=== PATIENT | male | born 1980 | race Two or more races ===

== ENCOUNTER → 2018-12-19 | Outpatient (CLI) | payer OTHER ==
--- NOTE | 2018-12-19 10:34 | REP ---
Maxillofacial CT study without contrast: History: Chronic maxillary sinusitis. No comparison imaging. Findings: There is a 1.5 cm mucous retention cyst in the anteroinferior aspect of the left maxillary sinus. There is another small mucous retention cyst posteromedially in the same left maxillary sinus. There is mucosal thickening along the left lateral wall of the sphenoid sinus. Ethmoid and frontal sinuses appear to be clear. The right maxillary sinus is clear. Mastoid aeration is normal and symmetric. Coronal images demonstrate widely patent ostiomeatal complexes although there is mucosal thickening at the posterior aspect of the ostium on the left. There are small aerated clint bullosa bilaterally left larger than right. Bony nasal septum is in the midline. No nasal polyp is appreciated. No intraorbital or intracranial abnormality is appreciated. Impression: Mild mucosal changes in the left maxillary and left sphenoid sinus. Electronically Signed by Xavier Guillermo MD 12/19/2018 07:19 P
== END ==
LOC: M RAD 07:40
PROVIDERS: ATTEND Otolaryngology
DX: J01.00 Acute maxillary sinusitis, unspecified (principal)

== ENCOUNTER → 2019-01-11 | Outpatient (CLI) | payer OTHER ==
[~2019-01-11] MED LIST: PIRO20CA2 PO; SIMB1SUS OS; [UNRECOGNIZED DRUG - OTHER] OS
--- NOTE | 2019-01-14 07:39 | REP ---
MRI OF THE LUMBAR SPINE WITHOUT CONTRAST: REASON FOR EXAM: Lumbago, chronic back pain without improvement. COMPARISON: None. TECHNIQUE: MRI of the lumbar spine was performed without contrast utilizing axial T1 and T2 and sagittal STIR, T1 and T2 weighted imaging. FINDINGS: There is normal alignment and curvature of the lumbar spine. Vertebral body and intervertebral disc heights are maintained. There is diffuse hypointense signal throughout the bone marrow, which is nonspecific. There is no bone marrow edema. Visualized cord is unremarkable. The conus medullaris terminates at the L1-L2 level. The paraspinal soft tissues are within normal limits. There is no significant spinal canal stenosis or neural foraminal compromise. IMPRESSION: Diffuse hypointensity throughout the bone marrow, which is a nonspecific finding but can be seen with anemia, bone marrow reconversion and/or an infiltrative marrow process. Electronically Signed by Mago Madrigal MD 01/15/2019 08:54 A
== END ==
LOC: M RAD 14:08
PROVIDERS: ATTEND Anesthesiology
DX: M54.5 Low back pain (principal)

== ENCOUNTER → 2019-02-06 | Outpatient (CLI) | payer OTHER ==
--- NOTE | 2019-02-19 00:57 | ECWPNPC ---
PATIENT NAME: BRIANA MILLS : 1980 GENDER: MALE VISIT DATE: 02/06/2019 DISCHARGE DATE: 02/06/19 1643 VISIT LOCKED DATE TIME: PHYSICIAN: BROOK WALDRON MD RESOURCE: BROOK WALDRON MD REASON FOR APPOINTMENT 1. REVIEW MRI HISTORY OF PRESENT ILLNESS HISTORY OF PRESENT ILLNESS: PAIN THE PATIENT DESCRIBES THE PAIN... 38 YEAR OLD MALE PATIENT WITH A HISTORY OF CHRONIC LOW BACK PAIN. THE PATIENT DESCRIBES THE PAIN ACHING, SHARP, SHOOTING, AND CONTINUOUS WITH A PAIN SCORE OF 8-10/10 DEPENDING ON PHYSICAL ACTIVITY. THE PATIENT SAYS HE HAS BEEN SUFFERING FROM THIS PAIN FOR AROUND 2 YEARS THAT BEGAN AFTER PERFORMING VARIOUS EXERCISES AND DUTIES. PATIENT DENIES UNEXPLAINABLE WEIGHT LOSS, FEVER, CHILLS, NEW CHANGES ON HIS URINARY OR BOWEL CONTROL. FALL RISK SCREENING: SCREENING :NO FALLS REPORTED IN THE LAST YEAR CURRENT MEDICATIONS TAKING CETIRIZINE HCL 10 MG TABLET 1 TABLET ORALLY ONCE A DAY TAKING FLUTICASONE PROPIONATE 50 MCG/ACT SUSPENSION 1 SPRAY IN EACH NOSTRIL NASALLY ONCE A DAY TAKING SIMBRINZA 1-0.2 % SUSPENSION 1 DROP INTO AFFECTED EYE OPHTHALMIC THREE TIMES A DAY TAKING DUREZOL 0.05 % EMULSION 1 DROP INTO AFFECTED EYE OPHTHALMIC TWICE A DAY NOT-TAKING NAPROXEN 500 MG TABLET 1 TABLET WITH FOOD OR MILK NEEDED ORALLY EVERY 12 HRS UNKNOWN PREDNISOLONE ACETATE 1 % SUSPENSION 1 DROP INTO AFFECTED EYE OPHTHALMIC TWICE A DAY UNKNOWN MELOXICAM 15 MG TABLET 1 TABLET ORALLY ONCE A DAY UNKNOWN HYDROCODONE-ACETAMINOPHEN 5-325 MG TABLET DIRECTED ORALLY MEDICATION LIST REVIEWED AND RECONCILED WITH THE PATIENT PAST MEDICAL HISTORY LOW BACK PAIN 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 SOCIAL HISTORY GENERAL: TOBACCO USE ARE YOU A:FORMER SMOKER HOW LONG HAS IT BEEN SINCE YOU LAST SMOKED?> 10 YEARS PAIN CLINIC PFS, CLERGY, PUBLIC HEALTH REFERRALS HAS THE PATIENT BEEN EDUCATED REGARDING HIS/HER PLAN OF CARE?YES HAS THE PATIENT BEEN EDUCATED REGARDING PAIN, THE RISK FOR PAIN, THE IMPORTANCE OF EFFECTIVE PAIN MANAGEMENT, AND THE PAIN ASSESSMENT PROCESS?YES LATEX QUESTIONNAIRE LATEX ALLERGY : HAVE YOU EVER DEVELOPED ANY TYPE OF REACTION AFTER HANDLING LATEX PRODUCTS SUCH RUBBER GLOVES, CONDOMS, DIAPHRAGMS, BALLOONS, SOCKS, OR UNDERWEAR?NO LATEX ALLERGY : HAVE YOU EVER DEVELOPED ANY TYPE OF REACTION DURING OR AFTER DENTAL APPOINTMENT, VAGINAL/RECTAL EXAMINATION, SURGICAL PROCEDURE, OR ANY OTHER EXPOSURE?NO DATE ASKED : 12/16/2018 LATEX RISK : HAVE YOU EVER HAD ANY DIFFICULTY BREATHING OR HIVES AFTER EATING OR HANDLING ANY FRUITS, OR VEGETABLES; SUCH KIWI, BANANAS, STONE FRUITS, OR CHESTNUTSNO LATEX RISK : DO YOU HAVE A PREVIOUS PERSONAL HISTORY OF MORE THAN NINE SURGERIES, SPINA BIFIDA, OR REPEATED CATHERIZATIONS? NO LATEX RISK : ARE YOU FREQUENTLY EXPOSED TO LATEX PRODUCTS IN YOUR OCCUPATION?NO CAFFEINE CAFFEINE USE?YES 1 CUP COFFEE / DAY ADVANCE DIRECTIVE ADVANCE DIRECTIVE DISCUSSED WITH PATIENT:YES PT HAS HCP YUMIKO MILLS [phone] YARSANI [id number] [employer] LANGUAGE LANGUAGES SPOKEN:TAJIK MARITAL STATUS: . RECREATIONAL DRUG USE DRUG USE?NO OCCUPATION: [employer]. EXERCISE: DAILY. LEARNING BARRIERS / SPECIAL NEEDS BARRIERS TO LEARNING?NO HEARING IMPAIRED?NO VISION IMPAIRED?NO COGNITIVELY IMPAIRED?NO READINESS TO LEARN?YES LEARNING PREFERENCES?NO LEARNING CAPABILITIES PRESENT?YES EMOTIONAL BARRIERS?NO SPECIAL DEVICES?NO STUDENT AMBASSADOR NEEDED?NO HOSPITALIZATION/MAJOR DIAGNOSTIC PROCEDURE SURGICAL REVIEW OF SYSTEMS REVIEWED BY: PROVIDER: BROOK WALDRON MD . CONSTITUTIONAL: ANY CHANGE IN YOUR MEDICAL CONDITION? NO . CHILLS NO . FEVER NO . INFECTION: DO YOU HAVE NEW INFECTIONS? NO . DO YOU HAVE HISTORY OF MRSA? NO . MUSCULOSKELETAL: ANY NEW PATTERNS OF PAIN OR NUMBNESS? NO . GASTROENTEROLOGY: ANY NEW CHANGE IN BOWEL CONTROL? NO . GENITOURINARY: ANY NEW CHANGE IN BLADDER CONTROL? NO . IS THERE A CHANCE YOU COULD BE ? NO . HEMATOLOGY/LYMPH: DO YOU TAKE ANY BLOOD THINNERS? (FOR EXAMPLE- COUMADIN, PLAVIX, AGGRENOX, PLATEL, PRADAXA, OR XARELTO) NO . WHEN WAS YOUR LAST DOSE? DATE: TIME: . NEUROLOGY: HAVE YOU FALLEN IN THE PAST 12 MONTHS? NO . ANY NEW EXTREMITY NUMBNESS OR WEAKNESS? NO . CARDIOLOGY: DO YOU HAVE A PACEMAKER OR DEFIBRILLATOR? NO . RESPIRATORY: HAVE YOU BEEN SICK IN THE PAST WEEK? NO . FEVER NO . FLU LIKE SYMPTOMS? NO . COUGH NO . INTEGUMENTARY: DO YOU HAVE ANY RASHES OR OPEN SORES? NO . ALLERGIC/IMMUNO: ARE YOU ALLERGIC TO IV DYE? NO . ANY NEW ALLERGIES? NO . PSYCHIATRIC: DO YOU HAVE THOUGHTS OF HURTING YOURSELF OR SOMEONE ELSE? NO . ARE YOU ABUSED, NEGLECTED, OR IN AN UNSAFE ENVIRONMENT? NO . ENDOCRINOLOGY: ARE YOU DIABETIC? NO . OTHER: DO YOU NEED ANY PRESCRIPTIONS? NO . IF YES, PLEASE LIST: ____ . ANY NEW PROBLEMS WITH YOUR MEDICATIONS? NO . WHEN DID YOU LAST EAT? ____ . WHEN DID YOU LAST DRINK? ____ . WHAT DID YOU LAST DRINK? ____ . NAME OF PERSON DRIVING YOU HOME? ____ . DO YOU HAVE ANY OTHER QUESTIONS OR CONCERNS NO . VITAL SIGNS WT 220.2 LBS, HT 70 IN, BMI 31.59 INDEX, BP 132/87 MM HG, HR 68 /MIN, RR 18 /MIN, TEMP 97.7 F, OXYGEN SAT % 96%, SAFE IN ENV? (Y/N) YES, NA INITIALS SC 14:57, REVIEWED BY: KG. EXAMINATION GENERAL EXAMINATION: PATIENT IS ALERT O X 3 AND COOPERATIVE. TENDERNESS IN THE LOW BACK. PRESENCE OF BANDS OF TISSUE AND TRIGGER POINTS WITH RESTRICTION OF MOVEMENT OF THE LOW BACK. MRI OF THE LUMBAR SPINE DONE ON 01/11/2019 SHOWS DIFFUSE HYPOINTENSITY THROUGHOUT THE BONE MARROW, WHICH IS A NONSPECIFIC FINDING BUT CAN BE SEEN WITH ANEMIA, BONE MARROW RECONVERSION AND/OR AN INFILTRATIVE MARROW PROCESS. ASSESSMENTS LOW BACK PAIN - M54.5 (PRIMARY) OTHER CHRONIC PAIN - G89.29 MYALGIA, OTHER SITE - M79.18 BONE MARROW CHANGES. TREATMENT LOW BACK PAIN CLINICAL NOTES: WE DISCUSSED SEVERAL ISSUES WITH MR. MILLS'S PAIN MANAGEMENT CASE. DUE TO THE TRIGGER POINTS, BANDS OF TISSUE, AND RESTRICTION OF MOVEMENT, I WOULD LIKE TO MOVE FORWARD WITH A TRIGGER POINT INJECTION AT THIS TIME. WE DISCUSSED THE BENEFITS, RISKS, AND ALTERNATIVES OF THE INJECTION AND THE PATIENT WOULD LIKE TO PROCEED. I DISCUSSED WITH THE PATIENT ABOUT THE FINDINGS ON HIS RECENT MRI SCAN AND ADVISED THE PATIENT TO FOLLOW UP WITH HIS PRIMARY CARE REGARDING THE MRI RESULTS THAT STATES "DIFFUSE HYPOINTENSITY THROUGHOUT THE BONE MARROW, WHICH IS A NONSPECIFIC FINDING BUT CAN BE SEEN WITH ANEMIA, BONE MARROW RECONVERSION, AND/OR AN INFILTRATIVE MARROW PROCESS." THE PATIENT IS AWARE AND AGREES TO FOLLOW UP WITH HIS PRIMARY CARE PHYSICIAN. THE PATIENT WILL FOLLOW UP IN SEVERAL WEEKS AFTER HIS INJECTION. INSTRUCTIONS WERE GIVEN, QUESTIONS WERE ANSWERED, PATIENT REPORTS UNDERSTANDING AND AGREES WITH THE PLAN. I, ALIYA ADAMS, DOCUMENTED THE ABOVE INFORMATION ACTING A SCRIBE FOR DR. WALDRON. I HAVE REVIEWED THE ABOVE DOCUMENT, WRITTEN BY ALIYA NAIR AND I VERIFY THAT IT IS ACCURATE. . OTHERS NOTES: TRIGGER POINT INJECTION HOME CARE MATERIAL WAS PRINTED,OPTIONS: TRIGGER POINT INJECTION MATERIAL WAS PRINTED. PREVENTIVE MEDICINE PAIN CLINIC TEACHING: PROCEDURE TEACHING PRINTED INFORMATION ON TRIGGER POINT INJECTIONS GIVEN TO AND REVIEWED WITH PT. ALONG WITH PRINTED PRE-PROCEDURE INSTRUCTIONS AND PT. VERBALIZED UNDERSTANDING ON ALL. AD. PROCEDURE CODES FA211 ESTABILISHED PATIENT [facility] CHARGE [id number] CURRENT MEDS W/DOSAGES DOCUMENTED G8730 PAIN ASSESS POS TOOL F/U PLAN DOC DISPOSITION & COMMUNICATION FOLLOW UP 4 WEEKS (REASON: TPI) ELECTRONICALLY SIGNED BY BROOK WALDRON MD, MD ON 02/18/2019 AT 12:09 PM EDT DISCLAIMER : THIS IS A VISIT SUMMARY EXTRACTED FROM THE [employer] CHART. IT IS NOT A COPY OF THE [employer] PROGRESS NOTE. YAMILETH
== END ==
LOC: M PAIN 15:00
PROVIDERS: ATTEND Anesthesiology
DX: G89.29 Other chronic pain (principal); M54.5 Low back pain; M79.18 Myalgia, other site; M10.9 Gout, unspecified; Z87.891 Personal history of nicotine dependence; Z79.899 Other long term (current) drug therapy; Z91.013 Allergy to seafood

== ENCOUNTER 2019-02-11 07:23 | Day surgery (SDC) | payer OTHER ==
[~2019-02-11] VITALS: Ht 177.8 cm; Wt 95.3 kg
[~2019-02-11 07:23] MED LIST changes: +LIDOCAINE 1% MDV 20ML VIAL SQ PRN; +LR 1,000 ML IV ONE; +dexameTHASONE 4 MG/ML 1ML VIAL (J1100) IV ONE
[2019-02-11] MEDS ORDERED: METHYLENE BLUE 0.5% (5MG/ML) 10 ML AMP (PROVAYBLUE)(Q9968 PER 1MG) As Ordered ONE (09:47)
[2019-02-11] MEDS ORDERED: EPINEPHrine 1MG/ML INJ 30ML MD-VIAL As Ordered ONE ×2 (09:47→11:35)
[2019-02-11] MEDS ORDERED: LIDOCAINE W/EPINEPHRINE 1% 20ML VIAL As Ordered ONE (09:47)
[2019-02-11] MEDS ORDERED: SODIUM CHLORIDE 0.9% NASAL GEL 15GM (AYR) As Ordered ONE (09:47)
[2019-02-11] MEDS ORDERED: ePHEDrine SULFATE 25 MG/5 ML(5MG/ML) SYRINGE As Ordered ONE (12:10)
[2019-02-11] MEDS ORDERED: ROCURONIUM BROMIDE 50 MG/5 ML VIAL As Ordered ONE (12:10)
[2019-02-11] MEDS ORDERED: dexameTHASONE 4 MG/ML 1ML VIAL (J1100) As Ordered ONE (12:10)
[2019-02-11] MEDS ORDERED: ONDANSETRON 4MG/2ML VIAL (J2405) As Ordered ONE (12:10)
[2019-02-11] MEDS ORDERED: PROPOFOL 200 MG/20 ML VIAL As Ordered ONE ×2 (12:10→13:13)
[2019-02-11] MEDS ORDERED: LIDOCAINE 2% INJ 100 MG/5 ML SDV (FOR ANES.) As Ordered ONE (12:10)
[2019-02-11] MEDS ORDERED: fentaNYL 250 MCG/5 ML INJECTION (J3010) As Ordered ONE (12:10)
[2019-02-11] MEDS ORDERED: MIDAZOLAM INJ 2 MG/2 ML VIAL (J2250) As Ordered ONE (12:10)
[2019-02-11] MEDS ORDERED: SUGAMMADEX SODIUM 500 MG/5 ML VIAL (BRIDION) As Ordered ONE (12:40)
[2019-02-11] MEDS ORDERED: NALOXONE INJ 0.4 MG/1 ML VIAL (J2310) As Ordered ONE (13:52)
[2019-02-11] MEDS ORDERED: fentaNYL 100 MCG/2 ML INJECTION (J3010) IV PRN (14:15)
[2019-02-11] MEDS ORDERED: PERCOCET 5MG/325MG TAB PO PRN (14:15)
[2019-02-11] MEDS ORDERED: ONDANSETRON 4MG/2ML VIAL (J2405) IV PRN (14:15)
[2019-02-11] MEDS ORDERED: LR 1,000 ML IV SCH ×2 (14:15→15:16)
[2019-02-11 16:30] VITALS: BP 135/75
--- NOTE | 2019-02-18 13:45 | RO ---
DATE OF PROCEDURE: 02/11/2019 PREOPERATIVE DIAGNOSES: Chronic left maxillary sinusitis. Chronic left ethmoid sinusitis. Left clint bullosa. Hypertrophy of inferior nasal turbinates. POSTOPERATIVE DIAGNOSES: Chronic left maxillary sinusitis. Chronic left ethmoid sinusitis. Left clint bullosa. Hypertrophy of inferior nasal turbinates. PROCEDURE PERFORMED: 1. Endoscopic left maxillary antrostomy with tissue removal. 2. Endoscopic left anterior ethmoidectomy. 3. Resection of left clint bullosa. 4. Coblation of the inferior left and right nasal turbinates. 5. Stereotactic surgery using BrainLAB. 6. Implantation of PROPEL stents. SURGEON: Zeus Zambrano MD CEMETERY VAULT INSTALLER: ANESTHESIA: General. CLINICAL PREAMBLE: This 38-year-old man presented to the office complaining of chronic nasal congestion with symptoms mostly from the left side of his cheek. Physical examination confirmed presence of enlarged nasal turbinates. CT scan confirmed presence of clint bullosa and left sided chronic sinusitis. Management options including the surgery listed above have been discussed. The patient understood and consented to the procedure. DESCRIPTION OF PROCEDURE/OR NARRATION: The patient was identified in preoperative holding and brought to the operating room in stable condition. In supine position on the operating room table, the patient received general anesthesia followed by orotracheal intubation without incident. The patient was prepped and draped in the usual fashion for the procedure. The headband for the BrainLAB was successfully attached. Good surface matching was obtained between the patient's facial anatomy and the BrainLAB system. Both sides of the nasal cavity were packed using pledgets soaked in 1:1,000 epinephrine. The pledgets were then removed. Both sides of the nasal cavity were reinspected using 0 degree rigid nasal endoscope. Hypertrophic inferior nasal turbinates were noted. A left was noted as well. At this time, the left uncinate process was infiltrated with 1% lidocaine with 1:100,000 epinephrine. Uncinectomy was performed. The illuminated Guidewire from the ACCLARENT balloon sinuplasty system was successfully introduced into the left maxillary sinus. Balloon was inflated to 12 atmospheric pressure for 5 seconds the left maxillary antrostomy using the balloon. At this time, the tissue bridging between the left accessory osteum and the left maxillary antrum was then successfully taken down using side-biting forceps. The left maxillary sinus cavity was visualized and then irrigated using warm saline solution. At this time, the left ethmoidalis bulla was identified and taken down using the Blakesley forceps. Diseased anterior ethmoid air cells were identified and taken down as well. The left middle nasal turbinate was infiltrated with 1% lidocaine with 1:100,000 epinephrine. Mucosal incision was made along the inferior aspect of the left middle nasal turbinate to expose the clint bullosa. The clint bullosa was successfully decompressed along with removal of the bone along the inferior aspect of the nasal turbinate. At this time, the PROPEL was successfully implanted into the left osteomeatal complex area. Attention was turned to performing Coblation of the inferior nasal turbinates, anterior surfaces of the left and the right inferior nasal turbinates were infiltrated with 1% lidocaine with 1:100,000 epinephrine. A stab incision was made over the anterior surface of the right inferior nasal turbinate. Using the Coblator wand set at 4 for Coblation the submucosal plane of the right inferior nasal turbinate was successfully coblated. Three submucosal passes were made to the right inferior nasal turbinate. The procedure was then carried out to coblate the left inferior nasal turbinate in the submucosal plane as well. Complete hemostasis was observed at the end of he case. Estimated blood loss was approximately 50 mL. No complications were encountered. General anesthesia was reversed and the patient was extubated and brought to the recovery room in stable condition. In the recovery area, the patient was exhibited no evidence of periorbital ecchymosis. He demonstrated full and symmetrical extraocular motion.
== END 2019-02-11 16:34 | disposition home or self-care (01) ==
LOC: M SDC 07:23
PROVIDERS: ATTEND Otolaryngology
DX: J32.0 Chronic maxillary sinusitis (principal); J32.2 Chronic ethmoidal sinusitis; J34.3 Hypertrophy of nasal turbinates; Z79.899 Other long term (current) drug therapy; Z91.013 Allergy to seafood; F17.220 Nicotine dependence, chewing tobacco, uncomplicated
CPT/HCPCS: 30802; 31240; 31254; 31267; 88305; J1100; J2250; J2310; J2405; J3010; Q9968

== ENCOUNTER 2019-08-06 10:49 | Emergency (ER) | payer OTHER ==
[~2019-08-06] VITALS: Ht 177.8 cm; Wt 96.3 kg
[~2019-08-06 10:49] MED LIST changes: -LIDOCAINE 1% MDV 20ML VIAL SQ PRN; -LR 1,000 ML IV ONE; -dexameTHASONE 4 MG/ML 1ML VIAL (J1100) IV ONE
[2019-08-06] MEDS ORDERED: LATA0.0015 OS (11:06)
[2019-08-06] MEDS ORDERED: ILEV0.3D OS (11:06)
[2019-08-06] MEDS ORDERED: TIMO0.5S29 OS (11:06)
[2019-08-06] MEDS ORDERED: METH25TA3 PO (11:06)
[2019-08-06] MEDS ORDERED: VIGA0.02 OS (11:06)
[2019-08-06 11:40] LABS: APPEARANCE, URINE CLEAR (CLEAR); BACTERIA, URINE AUTO NEGATIVE (NEGATIVE); BILIRUBIN, URINE AUTO NEGATIVE (NEGATIVE); BLOOD, URINE BLOOD NEGATIVE (NEGATIVE); COLOR, URINE STRAW (YELLOW); GLUCOSE, URINE (UA) AUTO NEGATIVE (NEGATIVE); KETONE, URINE AUTO NEGATIVE (NEGATIVE); LEUKOCYTE ESTERASE, URINE AUTO NEGATIVE (NEGATIVE); NITRITE, URINE AUTO NEGATIVE (NEGATIVE); PROTEIN, URINE AUTO NEGATIVE (NEGATIVE); RBC, URINE AUTO 0 /HPF (0-3); SPECIFIC GRAVITY URINE AUTO 1.006 (1.002-1.035); SQUAMOUS EPITHELIAL CELL UR AU 0 /HPF (0-6); UROBILINOGEN, URINE AUTO 0.2 mg/dL (0.0-2.0); WBC, URINE AUTO 0 /HPF (0-3)
[2019-08-06 11:44] LABS: BASO # 0.1 10^3/uL (0.0-0.2); BASO % 1.1 % (0.0-1.0); EOS # 0.2 10^3/uL (0.0-0.5); EOS % 4.2 % (0.0-3.0); HEMATOCRIT 43.3 % (42.0-52.0); HEMOGLOBIN 15.1 g/dl (13.5-17.5); LYMPH # 2.2 10^3/uL (1.5-5.0); MEAN CORPUSCULAR HEMOGLOBIN 31.7 pg (27.0-33.0); MEAN CORPUSCULAR HGB CONC 34.9 g/dl (32.0-36.5); MEAN CORPUSCULAR VOLUME 90.8 fl (80.0-96.0); MONO # 0.4 10^3/uL (0.0-0.8); MONO % 9.3 % (0.0-5.0); NEUTROPHILS # 1.9 10^3/uL (1.5-8.5); NEUTROPHILS % 39.4 % (36.0-66.0); PLATELET COUNT, AUTOMATED 289 10^3/uL (150-450); RED BLOOD COUNT 4.77 10^6/uL (4.30-6.10); WHITE BLOOD COUNT 4.7 10^3/uL (4.0-10.0)
[2019-08-06 12:12] LABS: ALBUMIN 4.1 GM/DL (3.2-5.2); ALT/SGPT 25 U/L (12-78); BILIRUBIN,DIRECT 0.1 MG/DL (0.0-0.2); BILIRUBIN,TOTAL 0.5 MG/DL (0.2-1.0); BLOOD UREA NITROGEN 13 MG/DL (7-18); CALCIUM LEVEL 9.1 MG/DL (8.5-10.1); CARBON DIOXIDE LEVEL 30 MEQ/L (21-32); CHLORIDE LEVEL 105 MEQ/L (98-107); CREATININE FOR GFR 1.34 MG/DL (0.70-1.30); GLOMERULAR FILTRATION RATE > 60.0 (>60); GLUCOSE, FASTING 85 MG/DL (70-100); LIPASE 80 U/L (73-393); POTASSIUM SERUM 4.2 MEQ/L (3.5-5.1); SODIUM LEVEL 139 MEQ/L (136-145); TOTAL PROTEIN 7.6 GM/DL (6.4-8.2)
[2019-08-06 14:31] LABS: CK-MB VALUE MASS < 1.0 NG/ML (<3.6); CPK CREATINE PHOSPHOKINASE 198 U/L (39-308); MB/CK RELATIVE INDEX 0.51 (< OR =4); TROPONIN I < 0.02 NG/ML (< 0.10)
--- NOTE | 2019-08-06 14:35 | REP ---
CT abdomen and pelvis without IV or oral contrast: History: Flank pain. No comparison study. Findings: Preliminary digital clinical trials systems administrator radiograph is noncontributory. Axial images at the lung bases demonstrate that they are clear. The liver and the spleen are are normal in size. No splenic lesion is seen. There are two small faintly visualized low density areas in the right lobe of the liver which may be a hemangioma as. The largest of these measures 1.8 cm in greatest diameter. Consider right upper quadrant sonography for further evaluation. The liver is otherwise unremarkable. No pancreatic abnormalities observed. No abnormalities noted in the gallbladder. The kidneys enhance symmetrically and appear morphologically intact. There is no evidence of intrarenal calculus or hydronephrosis. No retroperitoneal mass or adenopathy is seen. Normal appendix is seen in the right lower quadrant. Seminal vesicles, prostate and urinary bladder are unremarkable. No abdominal wall defect is seen. Bone window settings show no bony destructive lesion. Impression: There are two small low density areas of right lobe of the liver, question hemangiomas. Further characterization with ultrasound suggested. Otherwise negative CT study abdomen and pelvis. No urinary tract calculus. Electronically Signed by Xavier Guillermo MD 08/06/2019 02:27 P
[2019-08-06] MEDS ORDERED: CYCL10TA PO (15:42)
[2019-08-06 16:15] VITALS: BP 134/80
--- NOTE | 2019-08-07 06:59 | ECGEPIP ---
[facility] - ED Test Date: 2019-08-06 Pat Name: BRIANA MILLS Department: Room: - Gender: Male Chair: PREET : 1980 Requested By: LEELEE Reynolds PA-C Order Number: [id number] Reading MD: Silvio Villavicencio Measurements Intervals [place] Rate: 45 P: 31 IA: 188 QRS: 71 QRSD: 104 T: 32 QT: 403 QTc: 350 Interpretive Statements SINUS BRADYCARDIA NO PRIORS FOR COMPARISON Electronically Signed on 08-07-2019 6:59:08 EST by Silvio Villavicencio
--- NOTE | 2019-08-07 10:54 | ED PDOC ---
Post-Departure Follow-Up avery zuniga faxed formal report of ct abd/p for fu Kal Barnett MD Aug 07, 2019 10:54
== END 2019-08-06 16:21 | disposition home or self-care (01) ==
LOC: M ED 10:49
DX: R10.32 Left lower quadrant pain (principal); D18.03 Hemangioma of intra-abdominal structures; R79.89 Other specified abnormal findings of blood chemistry; F17.218 Nicotine dependence, cigarettes, with other nicotine-induced disorders; Z91.013 Allergy to seafood

== ENCOUNTER 2019-10-20 08:57 | Emergency (ER) | payer OTHER ==
[~2019-10-20] VITALS: Ht 175.3 cm; Wt 94.6 kg
[~2019-10-20 08:57] MED LIST changes: +CYCL-707 PO; +ILEV0.3D OS; +LATA0.0015 OS; +METH25TA3 PO; +TIMO0.5S29 OS; +VIGA0.02 OS
[2019-10-20] MEDS ORDERED: LOTE0.5S (09:16)
[2019-10-20 10:57] LABS: BLOOD UREA NITROGEN 11 MG/DL (7-18); CARBON DIOXIDE LEVEL 28 MEQ/L (21-32); CHLORIDE LEVEL 106 MEQ/L (98-107); CREATININE FOR GFR 1.09 MG/DL (0.70-1.30); GLOMERULAR FILTRATION RATE > 60.0 (>60); GLUCOSE, FASTING 94 MG/DL (70-100); POTASSIUM SERUM 3.9 MEQ/L (3.5-5.1); SODIUM LEVEL 139 MEQ/L (136-145)
[2019-10-20 11:00] VITALS: BP 133/87
--- NOTE | 2019-10-20 12:18 | REP ---
PORTABLE CHEST: SINGLE VIEW. HISTORY: Chest pain. COMPARISON STUDY: No comparison study. FINDINGS: The lungs are well inflated and clear. The pleural angles are sharp. Heart size is normal. No significant bony abnormality. Pulmonary vasculature is not increased. Monitoring electrodes are seen. IMPRESSION: Negative portable chest x-ray. No acute disease. Electronically Signed by Xavier Guillermo MD 10/20/2019 04:55 P
--- NOTE | 2019-10-21 07:10 | ECGEPIP ---
[facility] - ED Test Date: 2019-10-20 Pat Name: BRIANA MILLS Department: Room: - Gender: Male Contract Administration Coordinator: : 1980 Requested By: Silvio Molina Order Number: [id number] Reading MD: Opal Magallon Measurements Intervals [place] Rate: 59 P: 50 MO: 172 QRS: 65 QRSD: 104 T: 31 QT: 376 QTc: 375 Interpretive Statements SINUS BRADYCARDIA WITH SINUS ARRHYTHMIA Electronically Signed on 10-21-2019 7:09:54 EDT by Opal Magallon
== END 2019-10-20 11:56 | disposition home or self-care (01) ==
LOC: M ED 08:57
DX: R07.89 Other chest pain (principal); Z91.018 Allergy to other foods